=== PATIENT | male | born 1980 | race Caucasian/White ===

== ENCOUNTER 2024-12-22 10:02 | Emergency (ER) | payer MEDICAID ==
[~2024-12-22] VITALS: Ht 160 cm; Wt 65.0 kg
[2024-12-22 10:06] VITALS: O2SAT 100
[2024-12-22] MEDS: ACETAMINOPHEN 500MG TABLET PO ONE (10:38)
[2024-12-22] MEDS: TETANUS, DIPHTHERIA, PERTUSSIS VAC/PF 0.5ML (>10YR OLD) IM ONE (10:41)
[2024-12-22] MEDS: LIDOCAINE HCL 1% 20ML VIAL INFIL ONE (11:25)
[2024-12-22] MEDS ORDERED: BO1 TP (11:45)
[2024-12-22] MEDS ORDERED: ACET-2708 MT (11:45)
[2024-12-22] MEDS ORDERED: AMOX1TAB16 MT (11:45)
[2024-12-22 12:05] VITALS: BP 130/77; PULSE 75; RESP 18; TEMP 36.9; O2SAT 100
== END 2024-12-22 12:06 | disposition home or self-care (01) ==
LOC: ER 10:02
DX: S51.852A Open bite of left forearm, initial encounter (principal); E11.9 Type 2 diabetes mellitus without complications; Z79.899 Other long term (current) drug therapy; W54.0XXA Bitten by dog, initial encounter; Y93.89 Activity, other specified; Y92.89 Other specified places as the place of occurrence of the external cause; Y99.8 Other external cause status
CPT/HCPCS: 73090; 90715; 90471; 99283; A6449; Z7610; A4565